=== PATIENT | male | born 1940 | race Caucasian/White ===

== ENCOUNTER 2016-09-23 15:30 | Inpatient (IN) | payer MEDICARE, OTHER ==
[~2016-09-23] VITALS: Ht 165.1 cm; Wt 56.2 kg
--- NOTE | 2016-09-23 15:58 | Emergency Room Report ---
History of Present Illness General Chief Complaint: To Be Triaged Source: Patient, Caregiver, PMD Present Illness HPI [id number] walk-in with friend/caregiver, sent by Dr Marshall for admission for failure to thrive. Patient is alert and oriented, endorses Parkinsons diagnosis since Feb 2016. Patient has no complaints, other than "frequent falls " noting multiple old bruises to upper extremities. Caregiver states patient "hallucinating, seeing things moving", "cant be by himself." Allergies: Coded Allergies: No Known Allergies (Unverified , 09/23/16) Patient History Past Medical History: HTN, dementia Past Surgical History: none Pertinent Family History: none Social History: Denies: alcohol use, drug use, smoking Immunizations: UTD Reviewed Nursing Documentation: PMH: Agreed, PSxH: Agreed Review of Systems All Other Systems: negative except mentioned in HPI Physical Exam Sp02 EP Interpretation: reviewed, normal General Appearance: normal inspection, well appearing, no apparent distress, alert, GCS 15, non-toxic Head: normocephalic, atraumatic Eyes: bilateral eye EOMI, bilateral eye PERRL ENT: normal ENT inspection, hearing grossly normal, normal voice Neck: normal inspection, full range of motion, supple, no bony tend Respiratory: normal inspection, lungs clear, normal breath sounds, no respiratory distress, no retraction, no wheezing Cardiovascular #1: regular rate, rhythm, no edema Gastrointestinal: normal inspection, normal bowel sounds, non tender, soft, no guarding, no hernia Genitourinary: no CVA tenderness Musculoskeletal: normal inspection, back normal, normal range of motion, Mykel' s Sign negative Neurologic: normal inspection, alert, oriented x3, responsive, graduation coach III-XII nml as tested, motor strength/tone normal, speech normal Psychiatric: normal inspection, judgement/insight normal, mood/affect normal Skin: normal inspection, normal color, no rash Lymphatic: normal inspection Medical Decision Making Medicare Attestation I Nilo Lobo MD hereby attest that the medical record entry for date of service, 03/30/16 accurately reflects signatures/notations that I made in my capacity as MD when I treated/diagnosed the above listed Medicare beneficiary. I attest that this information is true, accurate and complete to the best of my knowledge. I understand that any falsification, omission, or concealment of material fact may subject me to administrative, civil, or criminal liability. This patient warrants hospital admission for extreme of age and has a condition that cannot be treated as outpatient. Diagnostic Impression: Primary Impression: Failure to thrive Qualified Codes: R62.7 - Adult failure to thrive Additional Impressions: KEMI (acute kidney injury) Rhabdomyolysis Qualified Codes: M62.82 - Rhabdomyolysis ER Course Failure to thrive/weakness - Labs c/w KEMI, mild rhabdo. IVF NS given in ED for dehydration/pre-renal as likely cause. - CXR and UA negative for acute infection - CT head negative for acute trauma - ECG shows bifascular block. Troponin 0. Endorsed to Dr Bonilla for Dr Marshall at 642pm for med/surg admission EKG Diagnostic Results Rate: normal Rhythm: other - bifascular block, LVH Rhythm Strip Diag. Results EP Interpretation: yes Rate: 82 Chest X-Ray Diagnostic Results EP Interpretation: Yes Findings: no consolidation, no effusion, no pneumothorax, no acute cardiopulmonary disease Number of Views: 1 Status: improved Disposition: ADMITTED INPATIENT Condition: Serious Referrals: NON PHYSICIAN (PCP) NILO LOBO M.D. September 23, 2016 15:58
[2016-09-23 16:10] VITALS: BP 136/70
[2016-09-23 16:33] LABS: BASOPHILS % (AUTO) 1.4 % (0.0-2.0); EOSINOPHILS % (AUTO) 2.7 % (0.0-3.0); MEAN CORPUSCULAR HEMOGLOBIN 32.5 PG (27.0-31.0); MEAN CORPUSCULAR HGB CONC 35.2 G/DL (32.0-36.0); MEAN CORPUSCULAR VOLUME 92 FL (80-99); MEAN PLATELET VOLUME 10.5 FL (6.5-10.1); MONOCYTES % (AUTO) 13.3 % (1.0-10.0); NEUTROPHILS % (AUTO) 63.6 % (45.0-75.0); PLATELET COUNT 129 K/UL (150-450); RED CELL DISTRIBUTION WIDTH 13.5 % (11.6-14.8); WHITE BLOOD COUNT 5.5 K/UL (4.8-10.8)
[2016-09-23 16:52] LABS: TROPONIN I < 0.30 ng/mL (<=0.30)
[2016-09-23 16:55] LABS: ALANINE AMINOTRANSFERASE 5 U/L (3-41); ALBUMIN/GLOBULIN RATIO 1.2 (1.0-2.7); ANION GAP 19 (5-15); ASPARTATE AMINO TRANSFERASE 44 U/L (5-40); CALCIUM 9.1 mg/dL (8.6-10.2); CARBON DIOXIDE 19 mEQ/L (20-30); CHLORIDE 103 mEQ/L (98-107); CREATININE 1.7 mg/dL (0.7-1.2); HEMOLYSIS 4; POTASSIUM 4.2 mEQ/L (3.4-4.9); SODIUM 141 mEQ/L (135-145); TOTAL PROTEIN 6.9 g/dL (6.6-8.7)
[2016-09-23] MEDS ORDERED: SINEMET 25-1001 EAC1 ORAL (17:02)
[2016-09-23] MEDS ORDERED: MINOCYCLINE HC100 MG PO (17:02)
[2016-09-23] MEDS ORDERED: CEPHALEXIN500 M1 ORAL (17:02)
[2016-09-23] MEDS ORDERED: AMANTADINE100 M2 ORAL (17:02)
[2016-09-23 17:05] LABS: CKMB 17.9 ng/mL (< 6.7)
[2016-09-23 17:16] VITALS: BP 179/72
[2016-09-23 18:01] LABS: APPEARANCE,URINE CLEAR; KETONES,URINE 1+ (NEGATIVE); LEUKOCYTE ESTERASE ,URINE 3+ (NEGATIVE); NITRITE,URINE NEGATIVE (NEGATIVE); PH,URINE 5 (4.5-8.0); PROTEIN,URINE 2+ (NEGATIVE); UROBILINOGEN,URINE NORMAL MG/DL (0.0-1.0)
[2016-09-23 18:16] LABS: AMORPHOUS SEDIMENT,UR FEW /LPF; BACTERIA,URINE FEW /HPF
[2016-09-23] MEDS ORDERED: Miralax 17gm pkt ORAL PRN (19:00)
[2016-09-23 19:05] VITALS: BP 172/64
--- NOTE | 2016-09-23 19:08 | History and Physical ---
History of Present Illness General Date patient seen: September 23, 2016 Time patient seen: 19:08 Reason for Hospitalization: Multiple Trauma/Fall, Failure to thrive Present Illness HPI 75yo male with pmh of prostate cancer, HTN, parkinson's disease who presents with generalized weakness and multiple recent falls. Pt is accompanied by friend /caregiver who states that over the last week pt has been increasingly weaker, imbalanced and has had multiple falls. Most recent fall was today while getting out of bed. Pt has multiple bruises from prior falls including bruises on arms/ hands and forehead. Caregiver is worried that pt is not taking his meds appropriately as he is forgetful. Caregiver is pt's IHSS and only able to check in for a few hours a day. Caregiver states patient "hallucinating, seeing things moving", "cant be by himself." Pt also w/ poor PO intake. Recent fount to be retaining urine while at [facility] and contreras placed. Pt also UTI while at [facility] [place] and started on keflex. Denies f/c, n/v, d/c, chest pain , SOB. Pt was seen at PCP office today and then directed to ER given concern for failure to thrive and likely need for placement. In ED, pt noted to have KEMI w/ SCr 1.7. CK elevated to 800s. CT brain neg for acute abnormality. Given IVFs. Allergies: Coded Allergies: No Known Allergies (Unverified , 09/23/16) Medication History Scheduled Amantadine Hcl* (Amantadine*), 100 MG ORAL TWICE A DAY, (Reported) Carbidopa/Levodopa 25-100 Mg* (Sinemet 25-100 Mg Tablet*), 1 TAB ORAL THREE TIMES A DAY, (Reported) Cephalexin* (Cephalexin*), 500 MG ORAL FOUR TIMES A DAY, (Reported) Minocycline Hcl (Minocycline Hcl), 100 MG PO TWICE A DAY, (Reported) Patient History History Provided By: Patient, Friend, PMD Healthcare decision maker N Resuscitation status Advanced Directive on File Past Medical/Surgical History Past Medical/Surgical History: (1) HTN (hypertension) (2) Prostate cancer (3) Parkinsons disease Family History Family History: Patient reports no known family medical history. Social History Social History: (1) Lives alone with help available Review of Systems Constitutional: Reports: malaise, weakness Eye: Reports: no symptoms ENT: Reports: no symptoms Respiratory: Reports: no symptoms Cardiovascular: Reports: no symptoms Gastrointestinal: Reports: no symptoms Genitourinary: Reports: retention Musculoskeletal: Reports: no symptoms Skin: Reports: no symptoms Psychiatric: Reports: no symptoms Neurological: Reports: tremors Endocrine: Reports: no symptoms Hematologic/Lymphatic: Reports: easy bruising Physical Exam Physical Exam Narrative General: alert, cooperative, no distress, appears stated age Head: normocephalic, without obvious abnormality, atraumatic Eyes: conjunctivae/corneas clear. PERRL, EOM's intact Throat: lips, mucosa, and tongue normal. MMM Neck: supple, symmetrical, trachea midline, and no JVD Lungs: clear to auscultation bilaterally Heart: regular rate and rhythm, S1, S2 normal, no murmur, click, rub or gallop Abdomen: soft, non-tender, non-distended, bowel sounds normal; no masses or organomegaly Extremities: extremities normal, atraumatic, no cyanosis or edema Pulses: 2+ and symmetric Skin: skin color, texture, turgor normal; no rashes or lesions Neurologic: grossly normal, no focal deficits, +resting tremors Last 24 Hour Vital Signs Date Time Temp Pulse Resp B/P Pulse Ox O2 Delivery O2 Flow Rate FiO2 09/23/16 19:05 97.8 82 18 172/64 100 Room Air 09/23/16 17:16 87 12 179/72 98 Room Air 09/23/16 16:10 98.4 89 17 136/70 99 Room Air 09/23/16 16:00 98.4 89 17 136/70 99 Room Air Laboratory Tests Test 09/23/16 16:24 09/23/16 16:53 White Blood Count 5.5 K/UL (4.8-10.8) Red Blood Count 4.70 M/UL (4.70-6.10) Hemoglobin 15.3 G/DL (14.2-18.0) Hematocrit 43.4 % (42.0-52.0) Mean Corpuscular Volume 92 FL (80-99) Mean Corpuscular Hemoglobin 32.5 PG (27.0-31.0) H Mean Corpuscular Hemoglobin Concent 35.2 G/DL (32.0-36.0) Red Cell Distribution Width 13.5 % (11.6-14.8) Platelet Count 129 K/UL (150-450) L Mean Platelet Volume 10.5 FL (6.5-10.1) H Neutrophils (%) (Auto) 63.6 % (45.0-75.0) Lymphocytes (%) (Auto) 19.0 % (20.0-45.0) L Monocytes (%) (Auto) 13.3 % (1.0-10.0) H Eosinophils (%) (Auto) 2.7 % (0.0-3.0) Basophils (%) (Auto) 1.4 % (0.0-2.0) Sodium Level 141 mEQ/L (135-145) Potassium Level 4.2 mEQ/L (3.4-4.9) Chloride Level 103 mEQ/L (98-107) Carbon Dioxide Level 19 mEQ/L (20-30) L Anion Gap 19 (5-15) H Blood Urea Nitrogen 44 mg/dL (7-23) H Creatinine 1.7 mg/dL (0.7-1.2) H Estimat Glomerular Filtration Rate mL/min (>60) Glucose Level 94 mg/dL (74-106) Calcium Level 9.1 mg/dL (8.6-10.2) Total Bilirubin 0.5 mg/dL (0.0-1.2) Aspartate Amino Transf (AST/SGOT) 44 U/L (5-40) H Alanine Aminotransferase (ALT/SGPT) 5 U/L (3-41) Alkaline Phosphatase 102 U/L (40-129) Total Creatine Kinase 895 U/L (38-174) H Creatine Kinase MB 17.9 ng/mL (< 6.7) H Creatine Kinase MB Relative Index 2.0 Troponin I < 0.30 ng/mL (<=0.30) Total Protein 6.9 g/dL (6.6-8.7) Albumin 3.8 g/dL (3.5-5.2) Globulin 3.1 g/dL Albumin/Globulin Ratio 1.2 (1.0-2.7) Urine Color Pale yellow Urine Appearance Clear Urine pH 5 (4.5-8.0) Urine Specific [place] 1.025 (1.005-1.035) Urine Protein 2+ (NEGATIVE) H Urine Glucose (UA) Negative (NEGATIVE) Urine Ketones 1+ (NEGATIVE) H Urine Occult Blood 5+ (NEGATIVE) H Urine Nitrite Negative (NEGATIVE) Urine Bilirubin Negative (NEGATIVE) Urine Urobilinogen Normal MG/DL (0.0-1.0) Urine Leukocyte Esterase 3+ (NEGATIVE) H Urine RBC 5-10 /HPF (0 - 0) H Urine WBC 2-4 /HPF (0 - 0) Urine Squamous Epithelial Cells None /LPF (NONE/OCC) Urine Amorphous Sediment Few /LPF (NONE) H Urine Bacteria Few /HPF (NONE) Height (Feet): 5 Height (Inches): 5.00 Weight (Pounds): 124 Medications Current Medications Medications (Trade) Dose Ordered Sig/Alejandro Route PRN Reason Start Time Stop Time Status Last Admin Dose Admin Acetaminophen (Tylenol) 650 mg Q4H PRN ORAL Mild Pain (Pain Scale 1-3) 09/23/16 19:00 10/23/16 18:59 UNV Amantadine HCl (Symmetrel) 100 mg TWICE A DAY ORAL 09/24/16 09:00 10/24/16 08:59 UNV Amlodipine Besylate 5 mg 5 mg DAILY PRN ORAL SBP>160 09/23/16 19:00 10/23/16 18:59 UNV Bisacodyl (Dulcolax) 10 mg HSPRN PRN RECTAL Constipation 09/23/16 19:00 10/23/16 18:59 UNV Carbidopa/Levodopa (Sinemet 25/100) 1 ea THREE TIMES A DAY ORAL 09/24/16 09:00 10/24/16 08:59 UNV Ceftriaxone Sodium/Dextrose (Rocephin/D5W) 55 ml @ 110 mls/hr Q24H IVPB 09/23/16 19:15 09/30/16 19:14 UNV Dextrose (Dextrose 50%) STAT PRN IV Hypoglycemia 09/23/16 19:00 10/23/16 18:59 UNV Diphenhydramine HCl (Benadryl) 25 mg Q6H PRN ORAL Itching/Pruritis 09/23/16 19:00 10/23/16 18:59 UNV Docusate Sodium (Colace) 100 mg EVERY 12 HOURS ORAL 09/23/16 21:00 10/23/16 20:59 UNV Ondansetron HCl (Zofran) 4 mg Q6H PRN IVP Nausea & Vomiting 09/23/16 19:00 10/23/16 18:59 UNV Polyethylene Glycol (Miralax) 17 gm HSPRN PRN ORAL Constipation 09/23/16 19:00 10/23/16 18:59 UNV Sodium Chloride 1,000 ml @ 75 mls/hr [id number] IV 09/23/16 19:15 10/23/16 19:14 UNV Assessment/Plan Problem List: (1) Failure to thrive SNOMED: 27790793 Qualifiers: Qualified Codes: R62.7 - Adult failure to thrive (2) KEMI (acute kidney injury) ICD Codes: N17.9 - Acute kidney failure, unspecified SNOMED: 51383844 (3) UTI (urinary tract infection) ICD Codes: N39.0 - Urinary tract infection, site not specified SNOMED: 32928389 (4) multiple recent falls (5) Parkinsons disease ICD Codes: G20 - Parkinson's disease SNOMED: 17413890 Status: stable Assessment/Plan Admit inpt Neurology consult Cont home sinemet, amantamide Ceftriaxone for UTI while in-house F/u urine cx Check B12, folate, TSH, vitamin D, prealbumin, ESR/CRP, cholesterol Trend CK IVFs given KEMI Trend lytes, Cr Avoid nephrotoxic meds PT/OT/ST Heat Curer consult Swallow eval Likely will need SNF/rehab placement and eventual TANJA/B&C DVT Prophylaxis: SCD Code Status: DNR/DNI Hospital Classification Declaration: Based on this initial evaluation, and depending on the patient's clinical course, I anticipate that this patient will require hospitalization for 2-3 days for FTT, KEMI, and close respiratory/ hemodynamic monitoring. Disposition: Once the patient is stable to leave the hospital, I anticipate the patient will likely be discharged to the following environment: SNF I spent 70 minutes on this patient's case, and 38 minutes were dedicated to counseling and/or care coordination. Discussed with patient/family, nursing staff, SW/CM, PCP, ED physicain regarding clinical status, treatment course, and disposition planning. Time of note may not reflect time of encounter. Advanced Care Planning Note Date of Discussion: 09/23/16 A [id number] discussion with the patient regarding the patient's advanced care planning took place during this hospitalization on the above date. The discussion included the explanation and discussion of advance directives and associated forms/documents, as well as the patient's current code status. We also discussed at length the patient's medical conditions (both acute and chronic), general prognosis, treatment options, and goals of care. The following summarizes the discussion: Advance Care Planning/Goals of Care: - Will attempt to fill out an AD and/or POLST with the patient prior to discharge, if not already completed - Continue current evaluation and management of any acute and chronic medical issues - Will continue to support the patient/family - Will continue to discuss both short- and long-term goals of care DPOA-HC/Surrogate Decision Maker: DPOA is pili Henao - [phone] Code Status: DNR/DNI AD Forms/Documents Completed: Asked to bring in AD form Will complete POLST prior to d/c A total of 31 minutes was spent on this discussion, including counseling, answering questions, and completing, if any, pertinent advanced care planning forms/documents. Chad Gallegos M.D. September 23, 2016 19:08
[2016-09-23 20:00] VITALS: BP 180/90
[2016-09-23] MEDS: Amantadine 100mg cap ORAL SCH (20:58)
[2016-09-23] MEDS: Docusate 100mg cap ORAL SCH (20:58)
[2016-09-23] MEDS: cefTRIAXone 1 GM in D5W 55 ML IVPB SCH (21:01)
[2016-09-24] VITALS: BP 167/86
[2016-09-24 04:21] VITALS: BP 155/75
[2016-09-24 06:57] LABS: BASOPHILS % (AUTO) 0.8 % (0.0-2.0); EOSINOPHILS % (AUTO) 2.6 % (0.0-3.0); MEAN CORPUSCULAR HEMOGLOBIN 30.7 PG (27.0-31.0); MEAN CORPUSCULAR HGB CONC 33.6 G/DL (32.0-36.0); MEAN CORPUSCULAR VOLUME 91 FL (80-99); MEAN PLATELET VOLUME 10.3 FL (6.5-10.1); MONOCYTES % (AUTO) 12.5 % (1.0-10.0); NEUTROPHILS % (AUTO) 64.1 % (45.0-75.0); PLATELET COUNT 127 K/UL (150-450); RED BLOOD COUNT 4.41 M/UL (4.70-6.10); RED CELL DISTRIBUTION WIDTH 13.3 % (11.6-14.8); WHITE BLOOD COUNT 5.9 K/UL (4.8-10.8)
[2016-09-24 07:27] LABS: ALANINE AMINOTRANSFERASE 15 U/L (3-41); ALBUMIN/GLOBULIN RATIO 1.3 (1.0-2.7); ANION GAP 15 (5-15); ASPARTATE AMINO TRANSFERASE 37 U/L (5-40); CALCIUM 8.8 mg/dL (8.6-10.2); CARBON DIOXIDE 24 mEQ/L (20-30); CHLORIDE 101 mEQ/L (98-107); CREATININE 1.5 mg/dL (0.7-1.2); HEMOLYSIS 5; MAGNESIUM 2.1 mg/dL (1.7-2.5); POTASSIUM 4.1 mEQ/L (3.4-4.9); SODIUM 140 mEQ/L (135-145); TOTAL PROTEIN 6.3 g/dL (6.6-8.7)
[2016-09-24 08:00] VITALS: BP 144/71
[2016-09-24] MEDS: Docusate 100mg cap ORAL SCH ×2 (08:08→21:07)
[2016-09-24] MEDS: Amantadine 100mg cap ORAL SCH ×2 (08:08→17:59)
--- NOTE | 2016-09-24 08:33 | Diagnostic Imaging Report ---
Indications: Head trauma, status post fall Technique: Spiral acquisitions obtained through the brain. Angled axial and coronal 5 x 5 mm slices were reconstructed. Total dose length product 1425 mGycm. CTDI vol(s) 70 mGy. Dose reduction achieved using automated exposure control Comparison: None Findings: There is age-related enlargement of ventricles and extra-axial CSF spaces. There is minimal periventricular deep white matter chronic ischemic change. There is an old lacunar infarct in the right external capsule region. There is a parenchymal in the right occipital lobe. No acute hemorrhage or edema. No mass effect or midline shift. The remainder of the silvestre-white differentiation is normal. The calvarium is intact there is minimal posterior ethmoid sinus disease on the left. The orbits are unremarkable. The mastoids are clear. Impression: Chronic and age-related changes, including old right basal ganglia lacunar infarct. 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 Bertrand The CT scanner at [facility] is accredited by the [employer] and the scans are performed using protocols designed to limit radiation exposure to as low as reasonably achievable to attain images of sufficient resolution adequate for diagnostic evaluation.
[2016-09-24 10:51] LABS: CHOLESTEROL 122 mg/dL (< 200); CRP QUANT 0.6 mg/dL (< 0.5)
[2016-09-24] MEDS: Miralax 17gm pkt ORAL SCH (10:57)
[2016-09-24] MEDS: Vitamin B12 1000mcg/ml Inj IM SCH (11:02)
--- NOTE | 2016-09-24 11:39 | Diagnostic Imaging Report ---
Indication: SOB Technique: One view of the chest Comparison: none Findings: There is a 12 mm nodule at the right lung base, somewhat irregular. Lungs and pleural spaces otherwise clear. There is slight tenting of left hemidiaphragm. The heart size is normal. The aorta is tortuous ectatic and calcified. Impression: 12 mm right basilar nodule. Possibly a nipple shadow, but somewhat irregular appearance is concerning. Recommend followup radiograph with nipple markers No acute process otherwise Findings discussed by phone with patient's attending physician at the time of interpretation
[2016-09-24 12:00] VITALS: BP 161/81
--- NOTE | 2016-09-24 12:07 | Neurology Progress Note ---
Objective Physical Exam Last Vital Signs Date Time Temp Pulse Resp B/P Pulse Ox O2 Delivery O2 Flow Rate FiO2 09/24/16 08:00 98.1 79 18 144/71 98 Room Air Laboratory Tests Test 09/23/16 16:24 09/23/16 16:53 09/24/16 05:35 White Blood Count 5.5 K/UL (4.8-10.8) 5.9 K/UL (4.8-10.8) Red Blood Count 4.70 M/UL (4.70-6.10) 4.41 M/UL (4.70-6.10) L Hemoglobin 15.3 G/DL (14.2-18.0) 13.5 G/DL (14.2-18.0) L Hematocrit 43.4 % (42.0-52.0) 40.3 % (42.0-52.0) L Mean Corpuscular Volume 92 FL (80-99) 91 FL (80-99) Mean Corpuscular Hemoglobin 32.5 PG (27.0-31.0) H 30.7 PG (27.0-31.0) Mean Corpuscular Hemoglobin Concent 35.2 G/DL (32.0-36.0) 33.6 G/DL (32.0-36.0) Red Cell Distribution Width 13.5 % (11.6-14.8) 13.3 % (11.6-14.8) Platelet Count 129 K/UL (150-450) L 127 K/UL (150-450) L Mean Platelet Volume 10.5 FL (6.5-10.1) H 10.3 FL (6.5-10.1) H Neutrophils (%) (Auto) 63.6 % (45.0-75.0) 64.1 % (45.0-75.0) Lymphocytes (%) (Auto) 19.0 % (20.0-45.0) L 20.0 % (20.0-45.0) Monocytes (%) (Auto) 13.3 % (1.0-10.0) H 12.5 % (1.0-10.0) H Eosinophils (%) (Auto) 2.7 % (0.0-3.0) 2.6 % (0.0-3.0) Basophils (%) (Auto) 1.4 % (0.0-2.0) 0.8 % (0.0-2.0) Sodium Level 141 mEQ/L (135-145) 140 mEQ/L (135-145) Potassium Level 4.2 mEQ/L (3.4-4.9) 4.1 mEQ/L (3.4-4.9) Chloride Level 103 mEQ/L (98-107) 101 mEQ/L (98-107) Carbon Dioxide Level 19 mEQ/L (20-30) L 24 mEQ/L (20-30) Anion Gap 19 (5-15) H 15 (5-15) Blood Urea Nitrogen 44 mg/dL (7-23) H 32 mg/dL (7-23) H Creatinine 1.7 mg/dL (0.7-1.2) H 1.5 mg/dL (0.7-1.2) H Estimat Glomerular Filtration Rate mL/min (>60) mL/min (>60) Glucose Level 94 mg/dL (74-106) 79 mg/dL (74-106) Calcium Level 9.1 mg/dL (8.6-10.2) 8.8 mg/dL (8.6-10.2) Total Bilirubin 0.5 mg/dL (0.0-1.2) 0.6 mg/dL (0.0-1.2) Aspartate Amino Transf (AST/SGOT) 44 U/L (5-40) H 37 U/L (5-40) Alanine Aminotransferase (ALT/SGPT) 5 U/L (3-41) 15 U/L (3-41) Alkaline Phosphatase 102 U/L (40-129) 95 U/L (40-129) Total Creatine Kinase 895 U/L (38-174) H 548 U/L (38-174) H Creatine Kinase MB 17.9 ng/mL (< 6.7) H Creatine Kinase MB Relative Index 2.0 Troponin I < 0.30 ng/mL (<=0.30) Total Protein 6.9 g/dL (6.6-8.7) 6.3 g/dL (6.6-8.7) L Albumin 3.8 g/dL (3.5-5.2) 3.6 g/dL (3.5-5.2) Globulin 3.1 g/dL 2.7 g/dL Albumin/Globulin Ratio 1.2 (1.0-2.7) 1.3 (1.0-2.7) Urine Color Pale yellow Urine Appearance Clear Urine pH 5 (4.5-8.0) Urine Specific [place] 1.025 (1.005-1.035) Urine Protein 2+ (NEGATIVE) H Urine Glucose (UA) Negative (NEGATIVE) Urine Ketones 1+ (NEGATIVE) H Urine Occult Blood 5+ (NEGATIVE) H Urine Nitrite Negative (NEGATIVE) Urine Bilirubin Negative (NEGATIVE) Urine Urobilinogen Normal MG/DL (0.0-1.0) Urine Leukocyte Esterase 3+ (NEGATIVE) H Urine RBC 5-10 /HPF (0 - 0) H Urine WBC 2-4 /HPF (0 - 0) Urine Squamous Epithelial Cells None /LPF (NONE/OCC) Urine Amorphous Sediment Few /LPF (NONE) H Urine Bacteria Few /HPF (NONE) Erythrocyte Sedimentation Rate 27 MM/HR (0-20) H Phosphorus Level 3.6 mg/dL (2.5-4.8) Magnesium Level 2.1 mg/dL (1.7-2.5) C-Reactive Protein, Quantitative 0.6 mg/dL (< 0.5) H Prealbumin Pending Cholesterol Level 122 mg/dL (< 200) Vitamin B12 Level 297 pg/mL (211-946) Vitamin D 25-Hydroxy Pending 25-Hydroxy Vitamin D2 Pending 25-Hydroxy Vitamin D3 Pending Folate Pending Thyroid Stimulating Hormone (TSH) Pending Impression/Recommendations Problems: (1) recurrent night time falls with amnesia. r/o sz episodes r/o oversedation r/ o syncope (2) Dementia, vascular with delirium (3) Adult failure to thrive syndrome (4) r/o occult malignancy (5) Parkinsons disease (6) Prostate cancer (7) HTN (hypertension) (8) KEMI (acute kidney injury) (9) Rhabdomyolysis Status: stable, unchanged Recommendations # [id number] REJI BRAND Sep 24, 2016 12:07
--- NOTE | 2016-09-24 12:26 | Diagnostic Imaging Report ---
Indication: Chest pain, followup of prior abnormal chest radiograph Technique: One view of the chest with nipple marker Comparison: none Findings: Nipple markers seen projecting over the right basilar opacity described on prior chest radiograph. The left nipple is also visible on the current exam, not clearly evident previously. Bilateral upper lobe bullous changes are more apparent on the current on the prior study. Focal scalloping or tenting of the left hemidiaphragm is again demonstrated. The lungs and pleural space are otherwise clear. Heart size is normal. Aorta is tortuous. Cholecystectomy clips are noted Impression: Previously described right basilar opacity is demonstrated on the current exam to represent a nipple shadow No acute process Bullous COPD changes
[2016-09-24 13:43] LABS: PSA TOTAL 1.4 ng/mL (< 4.5)
[2016-09-24 16:00] VITALS: BP 159/74
--- NOTE | 2016-09-24 17:30 | Consultation ---
DATE OF CONSULTATION: 09/24/2016 NEUROLOGICAL CONSULTATION REQUESTING PHYSICIAN: Dr. Chda Gallegos. HISTORY OF PRESENT ILLNESS: The patient is a 75-year-old gentleman seen in neurological consultation to evaluate a progressive generalized weakness, difficulty ambulation, and frequent nighttime falls. The patient informed me that last several months he has increasing difficulty ambulation, walking like a "drunk". Finally in February of last year, he was seen neurologist, Dr. Sheldon Edwards, diagnosed with Parkinson disease, started on Sinemet and felt some improvement. Last three to four months, he has noticed increasing generalized weakness involving upper, but predominantly lower extremities. While supine, he feels fairly well with no discomfort in his upper and lower extremities, but weakness developed with any attempt to ambulate. The patient informed me that he has he has difficulty sleeping so he takes some sleeping pills, which takes him through the night well. The last few days, he gets up in the middle of the night probably going to the bathroom and following which, he has episodes of fall. The patient has poor recollection of events. He remember only falling, not sure how he got up and what did he do and up to be falling and bruising his arms and hitting his head. He denies any associated symptoms such as involuntary movement, tongue biting, foaming from his mouth or urinary or bowel incontinence. The patient was brought to this hospital by his friend/caregiver. The patient had no other complaints other than being having frequent falls causing multiple bruises including right forehead region. According to caregiver, the patient had episodes of hallucination and was "seeing things moving". Caregiver concluded that the patient should not be stay alone. His initial examination was rather unremarkable. He was diagnosed with failure to thrive. 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 No evidence of acute intracranial abnormalities. Laboratory work included CBC which was unremarkable except low platelets 129,000. Sedimentation rate of 27. Chemistry panel with BUN of 34, creatinine 1.7, anion gap of 19. elevated CPK at 895 and CK-MB 17.9. Urinalysis with leukocyte esterase 3+, ketones 1+, protein 2+, and WBCs Since admission to present, there is not further paroxysmal events noted. PAST MEDICAL HISTORY: The patient indicated that two years ago, he had a "cancer in my rectum". He had a rectal surgery, underwent radiation therapy and chemotherapy. He stated that he has follow up with his surgeon once a year. The patient has a history of progressive memory loss. He admitted himself difficulty recalling of any ongoing events forcing him to write notes on everything that have to be done. He received . The patient has recent onset of urinary retention. Apparently, he was placed on Nam catheter. He has been recently treated for urinary tract infection. The patient also complains of having some constipation in the last couple weeks. He has a history of insomnia, takes unidentified sleeping pills. He has a history of chronic low back pain. MEDICATIONS: Treatment prior to admission included amantadine 100 mg twice a day, Sinemet 25/100 mg t.i.d., he is on cephalexin and minocycline. ALLERGIES: None reported. SOCIAL HISTORY: He is a single man. His closest family is his sister who is a physician, who lives in [place]. The patient lives alone, but has a caregiver. The patient indicated that he is still driving car and takes care of himself (doubt). 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 Denies alcohol or drug abuse. Nonsmoker. FAMILY HISTORY: Noncontributory. REVIEW OF SYSTEMS: A 14-point review of symptoms was obtained, this included as previously generalized weakness, difficulty ambulation, unsteady gait, urinary retention, new onset of constipation, nighttime episodes of fall without good recollection. Memory loss. Denies headache or dizziness. No difficulty swallowing. No chest pain. No palpitations. No respiratory problems. Denies depression or anxiety. PHYSICAL EXAMINATION: GENERAL: The patient is well-developed cachectic appearing man, not in acute distress, lying comfortably in bed. VITAL SIGNS: His vital signs now stable, blood pressure 144/71 and temperature 99.1 degrees. HEENT: Head normocephalic. There is recent bruises on the right forehead region. NECK: Supple. No meningeal signs. EXTREMITIES: Peripheral pulses 1+ and symmetric. There is a few bruise on the right upper extremity. MENTAL STATUS: The patient is alert and oriented to his name, age, place. He is quite forgetful and a poor historian, but remain coherent, able to maintain conversation. No aphasia and no apraxia noted. CRANIAL NERVES II: Pupils, both responding to light and accommodation. Extraocular movement intact. No nystagmus. CRANIAL NERVES V: Normal corneal responses. CRANIAL NERVES VII: No facial asymmetry. CRANIAL NERVES VIII: Slight decrease in hearing. CRANIAL NERVES IX THROUGH XII: Tongue is in midline. Symmetric palate elevation. MOTOR EXAMINATION: Revealed slight bradykinesia and diffusely reduced strength 5-/5 in both upper and lower extremities, more pronounced in a hip. Flexors 4/5. Mild resting tremor of both hands. Deep tendon reflexes 1+ bilaterally with no pathological responses. SENSORY EXAM: Normal to pinprick and light touch. Gait, unsteady and wobbly. IMPRESSION: 1. New onset of progressive failure to thrive with urinary incontinence and constipation, rule out a tumor recurrence, rule out metastatic disease. 2. Parkinson syndrome, responding to treatment. 3. Hypertension. 4. Chronic low back pain. 5. 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 6. History of rectal cancer status post radiation and chemotherapy. 7. Recurrent nighttime episodes of fall with multiple head and arm injuries. Rule out a nighttime seizure disorder, rule out syncope, vasovagal. RECOMMENDATION: 1. EEG. 2. PSA and CEA. 3. Consider repeating CT of the abdomen and pelvis without contrast. 4. Laboratory work to include B12, methylmalonic acid, SWETA, CRP and thyroid function. 5. Continue current treatment, off sleeping pills, add aspirin 81 mg daily. 6. We will follow with you. Thank you for allowing me to see this interesting patient in neurological consultation. Jose Carlos Zhou M.D. DR: FATOUMATA JOB#: [id number] CC: Daron Hendrickson M.D.
[2016-09-24 20:00] VITALS: BP 165/77
[2016-09-24] MEDS: Sinemet 25/100 tab ORAL SCH (21:07)
[2016-09-24] MEDS: cefTRIAXone 1 GM in D5W 55 ML IVPB SCH (21:08)
[2016-09-25] VITALS (9 sets, daily range): BP systolic 126–184; BP diastolic 54–92
[2016-09-25 06:54] LABS: BASOPHILS % (AUTO) 0.8 % (0.0-2.0); EOSINOPHILS % (AUTO) 2.7 % (0.0-3.0); LYMPHOCYTES % (AUTO) 23.5 % (20.0-45.0); MEAN CORPUSCULAR HEMOGLOBIN 30.3 PG (27.0-31.0); MEAN CORPUSCULAR HGB CONC 32.7 G/DL (32.0-36.0); MEAN CORPUSCULAR VOLUME 92 FL (80-99); MEAN PLATELET VOLUME 10.1 FL (6.5-10.1); MONOCYTES % (AUTO) 13.9 % (1.0-10.0); NEUTROPHILS % (AUTO) 59.2 % (45.0-75.0); PLATELET COUNT 131 K/UL (150-450); RED BLOOD COUNT 4.58 M/UL (4.70-6.10); RED CELL DISTRIBUTION WIDTH 13.5 % (11.6-14.8)
[2016-09-25 07:16] LABS: ANION GAP 14 (5-15); CALCIUM 9.1 mg/dL (8.6-10.2); CARBON DIOXIDE 25 mEQ/L (20-30); CHLORIDE 99 mEQ/L (98-107); CREATININE 1.5 mg/dL (0.7-1.2); HEMOLYSIS 4; POTASSIUM 3.8 mEQ/L (3.4-4.9); SODIUM 138 mEQ/L (135-145)
--- NOTE | 2016-09-25 08:46 | General Progress Note ---
Assessment/Plan Problem List: (1) Failure to thrive SNOMED: 94583476 Qualifiers: Qualified Codes: R62.7 - Adult failure to thrive (2) KEMI (acute kidney injury) ICD Codes: N17.9 - Acute kidney failure, unspecified SNOMED: 49373452 (3) UTI (urinary tract infection) ICD Codes: N39.0 - Urinary tract infection, site not specified SNOMED: 76123665 (4) multiple recent falls (5) Parkinsons disease ICD Codes: G20 - Parkinson's disease SNOMED: 67482524 Status: stable Assessment/Plan Neurology consulted, appreciate rec's F/u EEG F/u CT c/a/p Cont home sinemet, amantamide Ceftriaxone for UTI while in-house F/u urine cx Started B12 supplementation Trend CK Cont IVFs given KEMI Trend lytes, Cr Avoid nephrotoxic meds PT/OT/ST Underwriting Service Representative consulted, appreciate rec's Plan for video swallow eval Likely will need SNF/rehab placement and eventual TANJA/B&C--however pt currently declining DVT Prophylaxis: SCD Code Status: DNR/DNI Hospital Classification Declaration: Based on this initial evaluation, and depending on the patient's clinical course, I anticipate that this patient will require hospitalization for 1-2 days for FTT, KEMI, and close respiratory/ hemodynamic monitoring. Disposition: Once the patient is stable to leave the hospital, I anticipate the patient will likely be discharged to the following environment: SNF I spent 40 minutes on this patient's case, and 24 minutes were dedicated to counseling and/or care coordination. Discussed with patient/family, nursing staff, SW/CM, neurology regarding clinical status, treatment course, and disposition planning. Time of note may not reflect time of encounter. Subjective Date patient seen: Sep 24, 2016 Time patient seen: 15:00 ROS Limited/Unobtainable: No Constitutional: Reports: weakness HEENT: Reports: no symptoms Cardiovascular: Reports: no symptoms Respiratory: Reports: no symptoms Gastrointestinal/Abdominal: Reports: no symptoms Genitourinary: Reports: no symptoms Neurologic/Psychiatric: Reports: no symptoms Endocrine: Reports: no symptoms Hematologic/Lymphatic: Reports: no symptoms Allergies: Coded Allergies: No Known Allergies (Unverified , 09/23/16) All Systems: reviewed and negative except above Subjective Pt doing well. Pt very reluctant to go to SNF/rehab. He is adamant abt going home despite understanding the risks involved. Working w/ PT/OT Denies f/c, n/v, d/c, chest pain, SOB Objective Last 24 Hour Vital Signs Date Time Temp Pulse Resp B/P Pulse Ox O2 Delivery O2 Flow Rate FiO2 09/25/16 08:07 189/105 09/25/16 07:34 98.2 86 14 184/88 98 Room Air 09/25/16 04:00 97.7 79 18 150/79 Room Air 09/25/16 00:00 98.4 78 18 155/76 97 Room Air 09/24/16 21:08 165/77 09/24/16 20:00 99.0 81 20 165/77 98 Room Air 09/24/16 16:00 98.1 85 18 159/74 97 Room Air 09/24/16 15:40 180/84 09/24/16 12:00 97.9 88 20 161/81 98 Room Air Intake and Output 09/24/16 09/25/16 19:00 07:00 Intake Total 975 ml 880 ml Output Total 1000 ml 1700 ml Balance -25 ml -820 ml Intake IV Total 975 ml 880 ml Output Urine Total 1000 ml 1700 ml Laboratory Tests 09/25/16 05:30: White Blood Count 6.0, Red Blood Count 4.58L, Hemoglobin 13.9L, Hematocrit 42.4 , Mean Corpuscular Volume 92, Mean Corpuscular Hemoglobin 30.3, Mean Corpuscular Hemoglobin Concent 32.7, Red Cell Distribution Width 13.5, Platelet Count 131L, Mean Platelet Volume 10.1, Neutrophils (%) (Auto) 59.2, Lymphocytes (%) (Auto) 23.5, Monocytes (%) (Auto) 13.9H, Eosinophils (%) (Auto) 2.7, Basophils (%) (Auto) 0.8, Sodium Level 138, Potassium Level 3.8, Chloride Level 99, Carbon Dioxide Level 25, Anion Gap 14, Blood Urea Nitrogen 21, Creatinine 1.5H, Estimat Glomerular Filtration Rate , Glucose Level 83, Calcium Level 9.1, Total Creatine Kinase 426H Height (Feet): 5 Height (Inches): 5.00 Weight (Pounds): 124 Objective General: alert, cooperative, no distress, appears stated age, thin Head: normocephalic, without obvious abnormality, atraumatic Eyes: conjunctivae/corneas clear. PERRL, EOM's intact Throat: lips, mucosa, and tongue normal. MMM Neck: supple, symmetrical, trachea midline, and no JVD Lungs: clear to auscultation bilaterally Heart: regular rate and rhythm, S1, S2 normal, no murmur, click, rub or gallop Abdomen: soft, non-tender, non-distended, bowel sounds normal; no masses or organomegaly Extremities: extremities normal, atraumatic, no cyanosis or edema Pulses: 2+ and symmetric Skin: skin color, texture, turgor normal; multiple bruises and ecchymoses Neurologic: grossly normal, no focal deficits, +mild resting tremor (improved from admission) Chad Gallegos M.D. Sep 25, 2016 08:46
[2016-09-25] MEDS: Sinemet 25/100 tab ORAL SCH ×3 (10:19→17:23)
[2016-09-25] MEDS: Docusate 100mg cap ORAL SCH ×2 (10:20→20:31)
[2016-09-25] MEDS: Miralax 17gm pkt ORAL SCH ×2 (10:20→20:30)
[2016-09-25] MEDS: Amantadine 100mg cap ORAL SCH ×2 (10:20→17:24)
[2016-09-25] MEDS: Vitamin B12 1000mcg/ml Inj IM SCH (10:21)
--- NOTE | 2016-09-25 10:52 | Diagnostic Imaging Report ---
Indication: Chest and abdominal pain Technique: Continuous helical transaxial imaging of the abdomen and pelvis was obtained from the lung bases to the pubic symphysis. No IV contrast was administered. Coronal 2-D reformats were also obtained. Study obtained in a Siemens sensation [address] Total Dose length Product (DLP): [address] Dose Index Volume (CTDIvol): 1120 mGy Comparison: None Findings: Hyperlucency and architectural distortion of pulmonary vascularity noted throughout the lung nunez bilaterally predominating in the upper lobes. This is also associated with generalized hyperinflation. There are are several paraseptal blebs and a few or noted. Findings consistent with emphysema. The largest single bulla is about 5.7 x 3.0 CM noted just posterior to the telly within the right lower lobe. There is a pectus excavatum. There is moderate calcification of the thoracic aorta and generalized, mild enlargement of the aorta. Coronary calcifications are also present. Small hiatal hernia is present. The stomach is nondistended. There is prominence of the wall the stomach but this is lateral labral sign. Cholecystectomy noted. Nonspecific hypodensity demonstrated within the spleen measuring about 1.5 cm. Suggestion of parapelvic cysts as well as some cortical cysts within both kidneys. Adrenal glands are somewhat prominent bilaterally. There is moderate stool within the colon. Appendix is not densely opacified and are seen on this examination. There are no secondary signs of appendicitis. No free fluid or free air or evidence of bowel obstruction. Diverticula noted in the sigmoid colon. No definite diverticulitis identified. There is narrowing of intervertebral discs and accompanying endplate osteophyte formation. Hypertrophied facet joints also demonstrated.. The bones are osteopenic. Impression: COPD/emphysema moderate degree. Atherosclerotic vascular disease. A multiple bilateral renal cysts suspected. Findings may be confirmed by ultrasound or contrast examination. Moderate stool Diverticulosis of the colon. Status post cholecystectomy. A 1.6 cm low-density splenic lesion nonspecific. Breathing motion artifact Nam catheter in good position. Spondylosis and osteopenia. Bilateral adrenal gland prominence without discrete mass. Hiatal hernia The CT scanner at [facility] is accredited by the [employer] and the scans are performed using dose optimization techniques as appropriate to a performed exam including Automatic Exposure control.
[2016-09-25] MEDS: Aspirin Baby 81mg ORAL SCH (17:24)
--- NOTE | 2016-09-25 18:23 | General Progress Note ---
Assessment/Plan Problem List: (1) Failure to thrive SNOMED: [id number] Qualifiers: Qualified Codes: R62.7 - Adult failure to thrive (2) KEMI (acute kidney injury) ICD Codes: N17.9 - Acute kidney failure, unspecified SNOMED: 32946933 (3) UTI (urinary tract infection) ICD Codes: N39.0 - Urinary tract infection, site not specified SNOMED: 53186439 (4) multiple recent falls (5) Parkinsons disease ICD Codes: G20 - Parkinson's disease SNOMED: 94670652 Status: stable Assessment/Plan Neurology consulted, appreciate rec's F/u EEG F/u CT c/a/p--showed e/o COPD/emphysema, multiple b/l renal cysts, diverticulosis Cont home sinemet, amantamide Ceftriaxone for UTI while in-house F/u urine cx Cont B12 supplementation Trend CK Cont IVFs given KEMI Trend lytes, Cr Avoid nephrotoxic meds PT/OT/ST Derrick Man consulted, appreciate rec's F/u video swallow Regular diet, soft easy to chew for now Pt was instructed that he cannot drive Likely will need SNF/rehab placement and eventual LONG TERM/B&C--however pt currently declining Appreciate SW assistance--if pt ends up going home, then will file APS report DVT Prophylaxis: SCD Code Status: DNR/DNI Hospital Classification Declaration: Based on this initial evaluation, and depending on the patient's clinical course, I anticipate that this patient will require hospitalization for 1-2 days for FTT, KEMI, and close respiratory/ hemodynamic monitoring. Disposition: Once the patient is stable to leave the hospital, I anticipate the patient will likely be discharged to the following environment: SNF vs home w/ hh I spent 40 minutes on this patient's case, and 22 minutes were dedicated to counseling and/or care coordination. Discussed with patient/family, nursing staff, SW/CM, neurology regarding clinical status, treatment course, and disposition planning. Time of note may not reflect time of encounter. Subjective Date patient seen: Sep 25, 2016 Time patient seen: 15:00 ROS Limited/Unobtainable: No Constitutional: Reports: weakness HEENT: Reports: no symptoms Cardiovascular: Reports: no symptoms Respiratory: Reports: no symptoms Gastrointestinal/Abdominal: Reports: no symptoms Genitourinary: Reports: no symptoms Neurologic/Psychiatric: Reports: no symptoms Endocrine: Reports: no symptoms Hematologic/Lymphatic: Reports: no symptoms Allergies: Coded Allergies: No Known Allergies (Unverified , 09/23/16) All Systems: reviewed and negative except above Subjective Pt doing well. Pt very reluctant to go to SNF/rehab. He is adamant abt going home despite understanding the risks involved. Working w/ PT/OT Denies f/c, n/v, d/c, chest pain, SOB Objective Last 24 Hour Vital Signs Date Time Temp Pulse Resp B/P Pulse Ox O2 Delivery O2 Flow Rate FiO2 09/25/16 17:32 168/92 09/25/16 16:29 97.7 88 15 168/92 98 Room Air 09/25/16 11:47 97.7 86 15 155/81 98 Room Air 09/25/16 08:07 189/105 09/25/16 07:34 98.2 86 14 184/88 98 Room Air 09/25/16 04:00 97.7 79 18 150/79 Room Air 09/25/16 00:00 98.4 78 18 155/76 97 Room Air 09/24/16 21:08 165/77 09/24/16 20:00 99.0 81 20 165/77 98 Room Air Intake and Output 09/24/16 09/25/16 19:00 07:00 Intake Total 975 ml 880 ml Output Total 1000 ml 1700 ml Balance -25 ml -820 ml IV Total 975 ml 880 ml Output Urine Total 1000 ml 1700 ml Laboratory Tests 09/25/16 05:30: White Blood Count 6.0, Red Blood Count 4.58L, Hemoglobin 13.9L, Hematocrit 42.4 , Mean Corpuscular Volume 92, Mean Corpuscular Hemoglobin 30.3, Mean Corpuscular Hemoglobin Concent 32.7, Red Cell Distribution Width 13.5, Platelet Count 131L, Mean Platelet Volume 10.1, Neutrophils (%) (Auto) 59.2, Lymphocytes (%) (Auto) 23.5, Monocytes (%) (Auto) 13.9H, Eosinophils (%) (Auto) 2.7, Basophils (%) (Auto) 0.8, Sodium Level 138, Potassium Level 3.8, Chloride Level 99, Carbon Dioxide Level 25, Anion Gap 14, Blood Urea Nitrogen 21, Creatinine 1.5H, Estimat Glomerular Filtration Rate , Glucose Level 83, Calcium Level 9.1, Total Creatine Kinase 426H Height (Feet): 5 Height (Inches): 5.00 Weight (Pounds): 124 Objective General: alert, cooperative, no distress, appears stated age, thin Head: normocephalic, without obvious abnormality, atraumatic Eyes: conjunctivae/corneas clear. PERRL, EOM's intact Throat: lips, mucosa, and tongue normal. MMM Neck: supple, symmetrical, trachea midline, and no JVD Lungs: clear to auscultation bilaterally Heart: regular rate and rhythm, S1, S2 normal, no murmur, click, rub or gallop Abdomen: soft, non-tender, non-distended, bowel sounds normal; no masses or organomegaly Extremities: extremities normal, atraumatic, no cyanosis or edema Pulses: 2+ and symmetric Skin: skin color, texture, turgor normal; multiple bruises and ecchymoses Neurologic: grossly normal, no focal deficits, +mild resting tremor (improved from admission) Chad Gallegos M.D. Sep 25, 2016 18:23
[2016-09-25] MEDS: cefTRIAXone 1 GM in D5W 55 ML IVPB SCH (20:31)
[2016-09-26] VITALS (8 sets, daily range): BP systolic 139–173; BP diastolic 72–84
[2016-09-26 07:05] LABS: ANION GAP 14 (5-15); CARBON DIOXIDE 26 mEQ/L (20-30); CHLORIDE 98 mEQ/L (98-107); CREATININE 1.3 mg/dL (0.7-1.2); HEMOLYSIS 3; SODIUM 138 mEQ/L (135-145)
[2016-09-26 07:10] LABS: MAGNESIUM 1.8 mg/dL (1.7-2.5)
[2016-09-26] MEDS: Miralax 17gm pkt ORAL SCH ×2 (08:23→17:14)
[2016-09-26] MEDS: Aspirin Baby 81mg ORAL SCH (08:24)
[2016-09-26] MEDS: Sinemet 25/100 tab ORAL SCH ×3 (08:26→17:13)
[2016-09-26] MEDS: Docusate 100mg cap ORAL SCH ×2 (08:28→20:25)
[2016-09-26] MEDS: Amantadine 100mg cap ORAL SCH ×2 (08:28→17:12)
[2016-09-26] MEDS: Vitamin B12 1000mcg/ml Inj IM SCH (08:30)
--- NOTE | 2016-09-26 10:08 | Diagnostic Imaging Report ---
Indication:Elevated Bun and Creatinine. Technique: Grayscale and duplex Doppler imaging of the kidneys performed. Comparison: None Findings: There are multiple cysts within both kidneys of varying size. Subtle cortical and others parapelvic. Both kidneys appear echogenic in terms of the renal cortex. Findings correspond to recently obtained noncontrast CT performed on September 25, 2016 which showed multiple bilateral renal hypodensities. There is no hydronephrosis demonstrated currently. The right kidney measures 10.3 cm and the left 11.6 cm in length. The largest single cyst is in the left kidney centrally and measures about 5 cm. This appears to be a parapelvic cyst. The urinary bladder is collapsed. There is a Nam catheter present. Impression: Multiple bilateral renal cysts. Mildly increased echogenicity of the renal cortex bilaterally. Query medical renal disease. Nam catheter
[2016-09-26] MEDS ORDERED: NORVASC5 MG ORAL (14:56)
[2016-09-26] MEDS ORDERED: ASPIRIN81 MG ORAL (14:56)
--- NOTE | 2016-09-26 15:01 | Discharge Summary ---
Discharge Summary Hospital Course Date of Admission September 23, 2016 at 16:05 Date of Discharge September 26, 2016 Admitting Diagnosis failure to thrive Reason for Hospitalization: as above HPI Malachi Marion is a 75 year old male who was admitted on September 23, 2016 at 16:05 for Failure To Thrive Consultations Neurology Procedures none Hospital Course 75 y/o man admitted through ED due to recurrent galls at home, failure to thrive and possible metabolic encephalopathy with altered mentations. Seen by Neurology, CT brain normal. CT C/A/P done that was unremarkable. Pt renal function improved with IV fluids, UTI treated with IV abx, urine cx was no growth. After thorough evaluation, pt was dced to SNF after recs by PT Discharge Medications New Medications: Amlodipine Besylate (Norvasc) 5 Mg Tablet 10 MG ORAL DAILY for 30 Days, #30 TAB Aspirin* (Aspirin*) 81 Mg Tab.chew 81 MG ORAL DAILY for 30 Days, #30 TAB Continued Medications: Amantadine Hcl* (Amantadine*) 100 Mg Tablet 100 MG ORAL TWICE A DAY, TAB Carbidopa/Levodopa 25-100 Mg* (Sinemet 25-100 Mg Tablet*) 1 Each Tablet 1 TAB ORAL THREE TIMES A DAY, TAB Cephalexin* (Cephalexin*) 500 Mg Tablet 500 MG ORAL FOUR TIMES A DAY for 10 Days, CAP Minocycline Hcl (Minocycline Hcl) 100 Mg Capsule 100 MG PO TWICE A DAY, CAP Discharge Condition Upon Discharge: stable Discharge Disposition Patient was discharged to [facility] Discharge Diagnoses: (1) COPD (chronic obstructive pulmonary disease) (2) Parkinsons disease (3) HTN (hypertension) (4) UTI (urinary tract infection) (5) KEMI (acute kidney injury) (6) multiple recent falls (7) Adult failure to thrive syndrome (8) Dementia, vascular with delirium (9) recurrent night time falls with amnesia. r/o sz episodes r/o oversedation r/ o syncope (10) Metabolic encephalopathy ATILIO VÁZQUEZ Sep 26, 2016 15:01
[2016-09-26] MEDS ORDERED: Tubing IV Secondary IV ONE (17:12)
[2016-09-26] MEDS ORDERED: 1/2 NS 1000ml IV ONE (17:12)
[2016-09-26] MEDS: cefTRIAXone 1 GM in D5W 55 ML IVPB SCH (20:26)
[2016-09-26] MEDS: Zolpidem 5mg tab ORAL PRN (23:14)
[2016-09-27] VITALS (8 sets, daily range): BP systolic 147–167; BP diastolic 62–90
[2016-09-27] MEDS: Miralax 17gm pkt ORAL SCH ×2 (09:58→18:24)
[2016-09-27] MEDS: Vitamin B12 1000mcg/ml Inj IM SCH (09:58)
[2016-09-27] MEDS: Amantadine 100mg cap ORAL SCH ×2 (09:59→18:24)
[2016-09-27] MEDS: Aspirin Baby 81mg ORAL SCH (09:59)
[2016-09-27] MEDS: Docusate 100mg cap ORAL SCH ×2 (09:59→21:16)
[2016-09-27] MEDS: Sinemet 25/100 tab ORAL SCH ×3 (09:59→18:24)
--- NOTE | 2016-09-27 18:39 | General Progress Note ---
Assessment/Plan Problem List: (1) Dementia, vascular with delirium ICD Codes: F01.51 - Vascular dementia with behavioral disturbance; R41.0 - Disorientation, unspecified SNOMED: 63975749 (2) Adult failure to thrive syndrome ICD Codes: R62.7 - Adult failure to thrive SNOMED: 730166630 (3) multiple recent falls (4) KEMI (acute kidney injury) ICD Codes: N17.9 - Acute kidney failure, unspecified SNOMED: 69011114 (5) UTI (urinary tract infection) ICD Codes: N39.0 - Urinary tract infection, site not specified SNOMED: 24857926 (6) HTN (hypertension) ICD Codes: I10 - Essential (primary) hypertension SNOMED: 43936833 (7) Parkinsons disease ICD Codes: G20 - Parkinson's disease SNOMED: 67702504 (8) Metabolic encephalopathy ICD Codes: G93.41 - Metabolic encephalopathy SNOMED: 70965839 (9) COPD (chronic obstructive pulmonary disease) ICD Codes: J44.9 - Chronic obstructive pulmonary disease, unspecified SNOMED: 56233218 Assessment/Plan Neurology consulted, appreciate rec's F/u EEG F/u CT c/a/p--showed e/o COPD/emphysema, multiple b/l renal cysts, diverticulosis Cont home sinemet, amantamide Ceftriaxone for UTI while in-house F/u urine cx Cont B12 supplementation Trend CK Cont IVFs given KEMI Trend lytes, Cr Avoid nephrotoxic meds PT/OT/ST Metallurgical Specialist consulted, appreciate rec's F/u video swallow Regular diet, soft easy to chew for now Pt was instructed that he cannot drive Psychiatry consult to assess capacity Likely will need SNF/rehab placement and eventual INTERMEDIATE/B&C--however pt currently declining Appreciate SW assistance--if pt ends up going home, then will file APS report Subjective Date patient seen: Sep 27, 2016 Time patient seen: 18:38 ROS Limited/Unobtainable: No Allergies: Coded Allergies: No Known Allergies (Unverified , 09/23/16) Subjective Discharge held yesterday as pt refuses SNF, changed his mind after initially deciding to go to a SNF, pt with unsafe dispo plan Objective Last 24 Hour Vital Signs Date Time Temp Pulse Resp B/P Pulse Ox O2 Delivery O2 Flow Rate FiO2 09/27/16 16:00 97.5 85 20 147/62 97 Room Air 09/27/16 12:00 97.2 96 20 160/76 97 Room Air 09/27/16 10:00 100 166/86 09/27/16 08:00 97.9 100 20 166/86 97 Room Air 09/27/16 04:12 92 158/90 09/27/16 03:55 98.2 89 17 167/87 97 Room Air 09/27/16 00:40 90 150/82 09/26/16 23:55 98.1 84 20 165/81 98 Room Air 09/26/16 20:12 97.7 89 19 140/76 97 Room Air Intake and Output 09/26/16 09/27/16 19:00 07:00 Intake Total 825 ml 880 ml Output Total 800 ml 1100 ml Balance 25 ml -220 ml IV Total 825 ml 880 ml Output Urine Total 800 ml 1100 ml Height (Feet): 5 Height (Inches): 5.00 Weight (Pounds): 124 Objective General: alert, cooperative, no distress, appears stated age Head: normocephalic, without obvious abnormality, atraumatic Eyes: conjunctivae/corneas clear. PERRL, EOM's intact Throat: lips, mucosa, and tongue normal. MMM Neck: supple, symmetrical, trachea midline, and no JVD Lungs: clear to auscultation bilaterally Heart: regular rate and rhythm, S1, S2 normal, no murmur, click, rub or gallop Abdomen: soft, non-tender, non-distended, bowel sounds normal; no masses or organomegaly Extremities: extremities normal, atraumatic, no cyanosis or edema Pulses: 2+ and symmetric Skin: skin color, texture, turgor normal; no rashes or lesions Neurologic: grossly normal, no focal deficits ATILIO VÁZQUEZ Sep 27, 2016 18:39
[2016-09-27] MEDS: cefTRIAXone 1 GM in D5W 55 ML IVPB SCH (21:17)
--- NOTE | 2016-09-27 22:30 | Electroencephalogram ---
DATE OF PROCEDURE: 09/24/2016 REQUESTING PHYSICIAN: Daron Hendrickson M.D. HISTORY: This is a 75-year-old man with dementia, hallucinations, paroxysmal changes in mental status, treated now for Parkinson disease, progressive memory loss, generalized weakness, urinary tract infection and hypertension. EEG was done using 18 electrodes placed scalp to scalp, scalp to ear montages according to 10/20 International System. During the recording, awake or drowsy, but fairly cooperative. Most wakeful portions of recording, background activity consists of low to medium voltage, well regulated 8 to 9 cycles per second, alpha activity with good response to physiological stimulation. Photic stimulation from 3 to 33 hertz was done, result no significant changes. As recording progressed, there was appearance of further attenuation and disorganization of background corresponding to sleep stages. No evidence of paroxysmal or epileptiform activities noted. IMPRESSION: Normal awake stage 1 sleep EEG with photic stimulation. COMMENT: Absence of paroxysmal event on a single recording does not rule out seizure disorder. Jose Carlos Zhou M.D. DR: SABINE JOB#: [id number] CC:
[2016-09-27] MEDS: Zolpidem 5mg tab ORAL PRN (22:50)
[2016-09-28] VITALS: BP_SYST 138; BP_SYST 159; BP_DIAS 62; BP_DIAS 80
[2016-09-28 04:00] VITALS: BP 166/94
[2016-09-28 05:00] VITALS: BP 156/104
--- NOTE | 2016-09-28 07:02 | Cardiology Report ---
APPROVED REPORT EXAM: Two-dimensional and M-mode echocardiogram with Doppler and color Doppler. INDICATION Essential Hypertension M-Mode DIMENSIONS IVSd0.8 (0.7-1.1cm)Left Atrium (MM)4.0 (1.6-4.0cm) LVDd5.3 (3.5-5.6cm)Aortic Root3.1 (2.0-3.7cm) PWd1.5 (0.7-1.1cm)Aortic Cusp Exc.1.2 (1.5-2.0cm) IVSs1.5 cm LVDs3.5 (2.5-4.0cm) PWs1.8 cm Normal left ventricular chamber size, systolic function and wall motion. Left ventricular ejection fraction estimated to be 55-60 %. Mild left ventricular hypertrophy. Anterior Echo-free space, may be due to pericardial fat or effusion. All other cardiac chamber sizes are within normal limits. Aortic valve calcification with decreased cusp excursion c/w mild aortic stenosis. Thickened mitral valve leaflets with normal excursion. Mitral annulus and aortic root calcification. Pulmonic valve not well visualized. Normal tricuspid valve structure. IVC at normal size and collapsing with respiration. A color flow and spectral Doppler study was performed and revealed: Moderate aortic insufficiency. Peak aortic valve gradient of 20 mm Hg and a mean of 10 mmHg. Aortic valve area 1.7 cm2 calculated by continuity equation. Trace mitral regurgitation. Mitral diastolic velocities suggest reduced left ventricular relaxation c/w mild LV diastolic dysfunction (Grade I). Trace tricuspid regurgitation. Tricuspid systolic velocities suggests peak right ventricular systolic pressure of 12 mmHg. Pulmonic regurgitation present.
[2016-09-28 08:11] VITALS: BP 154/88
[2016-09-28] MEDS: Sinemet 25/100 tab ORAL SCH ×3 (09:15→18:32)
[2016-09-28] MEDS: Docusate 100mg cap ORAL SCH ×2 (09:15→20:08)
[2016-09-28] MEDS: Aspirin Baby 81mg ORAL SCH (09:16)
[2016-09-28] MEDS: Miralax 17gm pkt ORAL SCH ×2 (09:16→18:00)
[2016-09-28] MEDS: Amantadine 100mg cap ORAL SCH ×2 (09:16→18:32)
[2016-09-28] MEDS: Vitamin B12 1000mcg/ml Inj IM SCH (09:17)
--- NOTE | 2016-09-28 14:31 | General Progress Note ---
Assessment/Plan Problem List: (1) Dementia, vascular with delirium ICD Codes: F01.51 - Vascular dementia with behavioral disturbance; R41.0 - Disorientation, unspecified SNOMED: 55296775 (2) Adult failure to thrive syndrome ICD Codes: R62.7 - Adult failure to thrive SNOMED: 678968335 (3) multiple recent falls (4) KEMI (acute kidney injury) ICD Codes: N17.9 - Acute kidney failure, unspecified SNOMED: 18844366 (5) UTI (urinary tract infection) ICD Codes: N39.0 - Urinary tract infection, site not specified SNOMED: 39463897 (6) HTN (hypertension) ICD Codes: I10 - Essential (primary) hypertension SNOMED: 32732243 (7) Parkinsons disease ICD Codes: G20 - Parkinson's disease SNOMED: 27096694 (8) Metabolic encephalopathy ICD Codes: G93.41 - Metabolic encephalopathy SNOMED: 95333000 (9) COPD (chronic obstructive pulmonary disease) ICD Codes: J44.9 - Chronic obstructive pulmonary disease, unspecified SNOMED: 27467089 Assessment/Plan Neurology consulted, appreciate rec's F/u EEG F/u CT c/a/p--showed e/o COPD/emphysema, multiple b/l renal cysts, diverticulosis Cont home sinemet, amantamide Ceftriaxone for UTI while in-house F/u urine cx Cont B12 supplementation Trend CK Cont IVFs given KEMI Trend lytes, Cr Avoid nephrotoxic meds PT/OT/ST Cras consulted, appreciate rec's F/u video swallow Regular diet, soft easy to chew for now Pt was instructed that he cannot drive Psychiatry consult to assess capacity Likely will need SNF/rehab placement and eventual HALFWAY/B&C--however pt currently declining Appreciate SW assistance--if pt ends up going home, then will file APS report DC home with HH per patient request Subjective Date patient seen: Sep 28, 2016 Time patient seen: 14:29 ROS Limited/Unobtainable: No Allergies: Coded Allergies: No Known Allergies (Unverified , 09/23/16) Subjective Discharge held yesterday as pt refuses SNF, changed his mind after initially deciding to go to a SNF, pt with unsafe dispo plan, psych consult placed Objective Last 24 Hour Vital Signs Date Time Temp Pulse Resp B/P Pulse Ox O2 Delivery O2 Flow Rate FiO2 09/28/16 09:16 95 154/88 09/28/16 08:11 97.0 95 18 154/88 97 Room Air 09/28/16 05:00 156/104 09/28/16 04:28 166/94 09/28/16 04:00 98.0 92 18 166/94 98 Room Air 09/28/16 00:00 98.0 88 20 159/80 98 Room Air 09/27/16 20:30 158/75 09/27/16 20:00 97.0 90 20 163/79 99 Room Air 09/27/16 16:00 97.5 85 20 147/62 97 Room Air Intake and Output 09/27/16 09/28/16 19:00 07:00 Intake Total 280 ml 805 ml Output Total 600 ml 2000 ml Balance -320 ml -1195 ml Intake Oral 280 ml IV Total 805 ml Output Urine Total 600 ml 2000 ml # Bowel Movements 1 1 Height (Feet): 5 Height (Inches): 5.00 Weight (Pounds): 124 Objective General: alert, cooperative, no distress, appears stated age Head: normocephalic, without obvious abnormality, atraumatic Eyes: conjunctivae/corneas clear. PERRL, EOM's intact Throat: lips, mucosa, and tongue normal. MMM Neck: supple, symmetrical, trachea midline, and no JVD Lungs: clear to auscultation bilaterally Heart: regular rate and rhythm, S1, S2 normal, no murmur, click, rub or gallop Abdomen: soft, non-tender, non-distended, bowel sounds normal; no masses or organomegaly Extremities: extremities normal, atraumatic, no cyanosis or edema Pulses: 2+ and symmetric Skin: skin color, texture, turgor normal; no rashes or lesions Neurologic: grossly normal, no focal deficits ATILIO VÁZQUEZ Sep 28, 2016 14:31
[2016-09-28 16:00] VITALS: BP 151/89
[2016-09-28] MEDS: cefTRIAXone 1 GM in D5W 55 ML IVPB SCH (20:09)
[2016-09-28] MEDS: Zolpidem 5mg tab ORAL PRN (21:22)
--- NOTE | 2016-09-28 21:22 | Consultation ---
History of Present Illness General Date patient seen: Sep 27, 2016 Chief Complaint: Multiple Trauma/Fall Present Illness HPI 75-year-old gentleman seen in neurological consultation to evaluate a progressive generalized weakness, difficulty ambulation, and frequent nighttime falls. The patient stated that last several months he has increasing difficulty ambulation and has unsteady gait. the pt was engage during the evaluation and was able to process, communicate, understand and appreciate the information was given to him in regards to his current situation and dispo. the pt had mild cognitive impairment and didn't endorse any manic/psychotic nor depressive sxs. Allergies: Coded Allergies: No Known Allergies (Unverified , 09/23/16) Medication History Scheduled Amantadine Hcl* (Amantadine*), 100 MG ORAL TWICE A DAY, (Reported) Amlodipine Besylate (Norvasc), 10 MG ORAL DAILY Aspirin* (Aspirin*), 81 MG ORAL DAILY Carbidopa/Levodopa 25-100 Mg* (Sinemet 25-100 Mg Tablet*), 1 TAB ORAL THREE TIMES A DAY, (Reported) Cephalexin* (Cephalexin*), 500 MG ORAL FOUR TIMES A DAY, (Reported) Minocycline Hcl (Minocycline Hcl), 100 MG PO TWICE A DAY, (Reported) Patient History History Provided By: Patient, Friend, Medical Record, PMD Healthcare decision maker N Resuscitation status Advanced Directive on File Past Medical/Surgical History Past Medical/Surgical History: (1) Diverticulosis (2) COPD (chronic obstructive pulmonary disease) (3) Metabolic encephalopathy (4) Parkinsons disease (5) HTN (hypertension) (6) Failure to thrive (7) UTI (urinary tract infection) (8) KEMI (acute kidney injury) (9) multiple recent falls (10) Rhabdomyolysis (11) Adult failure to thrive syndrome (12) Dementia, vascular with delirium (13) recurrent night time falls with amnesia. r/o sz episodes r/o oversedation r /o syncope (14) r/o occult malignancy (15) History of anal cancer Physical Exam General Appearance: no apparent distress, alert, thin Neurologic: alert, oriented x 3, responsive Last 24 Hour Vital Signs Date Time Temp Pulse Resp B/P Pulse Ox O2 Delivery O2 Flow Rate FiO2 09/28/16 16:00 95.7 99 18 151/89 98 Room Air 09/28/16 09:16 95 154/88 09/28/16 08:11 97.0 95 18 154/88 97 Room Air 09/28/16 05:00 156/104 09/28/16 04:28 166/94 09/28/16 04:00 98.0 92 18 166/94 98 Room Air 09/28/16 00:00 98.0 88 20 159/80 98 Room Air Intake and Output 09/27/16 09/28/16 19:00 07:00 Intake Total 280 ml 805 ml Output Total 600 ml 2000 ml Balance -320 ml -1195 ml Intake Oral 280 ml IV Total 805 ml Output Urine Total 600 ml 2000 ml # Bowel Movements 1 1 Height (Feet): 5 Height (Inches): 5.00 Weight (Pounds): 124 Medications Current Medications Medications (Trade) Dose Ordered Sig/Alejandro Route PRN Reason Start Time Stop Time Status Last Admin Dose Admin Acetaminophen (Tylenol) 650 mg Q4H PRN ORAL Mild Pain (Pain Scale 1-3) 09/23/16 19:00 10/23/16 18:59 09/24/16 10:23 Amantadine HCl (Symmetrel) 100 mg TWICE A DAY ORAL 09/23/16 21:00 10/23/16 20:59 09/28/16 18:32 Amlodipine Besylate (Norvasc) 10 mg DAILY ORAL 09/27/16 09:00 10/27/16 08:59 09/28/16 09:16 Amlodipine Besylate 5 mg 5 mg DAILYPRN PRN ORAL SBP>160 09/23/16 19:00 10/23/16 18:59 09/26/16 12:35 Aspirin (ASA) 81 mg DAILY ORAL 09/25/16 14:00 10/25/16 13:59 09/28/16 09:16 Bisacodyl (Dulcolax) 10 mg HSPRN PRN RECTAL Unrelieved constipation 09/23/16 19:00 10/23/16 18:59 Carbidopa/Levodopa (Sinemet 25/100) 1 ea THREE TIMES A DAY ORAL 09/24/16 21:00 10/24/16 20:59 09/28/16 18:32 Ceftriaxone Sodium/Dextrose (Rocephin/D5W) 55 ml @ 110 mls/hr Q24H IVPB 09/23/16 21:00 09/30/16 20:59 09/28/16 20:09 Clonidine HCl (Catapres) 0.1 mg Q6HR PRN ORAL For High Blood Pressure 09/24/16 02:30 10/24/16 02:29 09/28/16 04:28 Cyanocobalamin (Vitamin B12) 1,000 mcg DAILY IM 09/24/16 11:00 10/01/16 10:59 09/28/16 09:17 Dextrose (Dextrose 50%) STAT PRN IV Hypoglycemia 09/23/16 19:00 10/23/16 18:59 Diphenhydramine HCl (Benadryl) 25 mg Q6H PRN ORAL Itching/Pruritis 09/23/16 19:00 10/23/16 18:59 09/25/16 23:30 Docusate Sodium (Colace) 100 mg EVERY 12 HOURS ORAL 09/23/16 21:00 10/23/16 20:59 09/28/16 20:08 Ondansetron HCl (Zofran) 4 mg Q6H PRN IVP Nausea & Vomiting 09/23/16 19:00 10/23/16 18:59 Polyethylene Glycol (Miralax) 17 gm BID ORAL 09/25/16 20:00 10/25/16 19:59 09/28/16 09:16 Sennosides (Senokot) 17.2 mg DAILY ORAL 09/24/16 10:30 10/24/16 10:29 09/28/16 09:16 Sodium Chloride 1,000 ml @ 75 mls/hr [id number] IV 09/23/16 21:00 10/23/16 20:59 09/28/16 09:17 Zolpidem Tartrate (Ambien) 5 mg HSPRN PRN ORAL Insomnia 09/26/16 07:45 10/26/16 07:44 09/27/16 22:50 Assessment/Plan Status: stable Assessment/Plan the pt has capacity to make decisions. the pt understand the need for more care at home. the pt is cooperative and doesn't have thought process disorder. Waleska Pisano M.D. Sep 28, 2016 21:22
[2016-09-28 23:34] VITALS: BP 138/62
--- NOTE | 2016-09-29 01:06 | Emergency Room Report ---
History of Present Illness General Chief Complaint: Multiple Trauma/Fall Source: Patient, Friend, Medical Record, PMD Present Illness HPI This is a 75-year-old male who was admitted to the hospital for further to thrive. He was to be discharged home today. In the hospital, he had urinary retention he had a Nam catheter. Nam was removed and he was put to be discharged after voiding. He was having probably and a new Nam was to be placed. Nursing staff on the floor had difficulty placing a Nam in him. I was called by Dr. Huynh to evaluate the patient for urinary retention and a new Nam catheter. On my arrival to the floor, patient said that he need to urinate. He was only able to urinate about 20 mL. Patient has no complaint other than unable to urinate. Allergies: Coded Allergies: No Known Allergies (Unverified , 09/23/16) Patient History Past Medical History: see triage record, old chart reviewed Past Surgical History: other Pertinent Family History: none Social History: Denies: smoking Immunizations: other Reviewed Nursing Documentation: PMH: Agreed, PSxH: Agreed Nursing Documentation-PMH Past Medical History: No History, Except For Hx Cardiac Problems: Yes Hx Hypertension: Yes Hx Cancer: No Hx Gastrointestinal Problems: No Hx Neurological Problems: Yes Hx Dementia: Yes - and/or hallucinations Hx Parkinson's Disease: Yes - and falls Review of Systems Eye: Denies: blurred vision, eye pain ENT: Denies: ear pain, nose congestion, throat swelling Respiratory: Denies: cough, shortness of breath Cardiovascular: Denies: chest pain, palpitations Gastrointestinal: Denies: abdominal pain, diarrhea, nausea, vomiting Genitourinary: Reports: retention Musculoskeletal: Denies: back pain, joint pain Skin: Denies: rash Neurological: Denies: headache, numbness Endocrine: Denies: increased thirst, increased urine Hematologic/Lymphatic: Denies: easy bruising All Other Systems: negative except mentioned in HPI Physical Exam Vital Signs Date Time Temp Pulse Resp B/P Pulse Ox O2 Delivery O2 Flow Rate FiO2 09/23/16 16:00 98.4 89 17 136/70 99 Room Air vitals normal Sp02 EP Interpretation: reviewed, normal General Appearance: well appearing, no apparent distress, alert Head: normocephalic, atraumatic Eyes: bilateral eye EOMI, bilateral eye PERRL ENT: hearing grossly normal, normal pharynx Neck: full range of motion, supple, no meningismus Respiratory: chest non-tender, lungs clear, normal breath sounds Cardiovascular #1: regular rate, rhythm, no murmur Gastrointestinal: normal bowel sounds, non tender, no mass, no organomegaly, no bruit, non-distended, distended - Distended bladder Genitourinary: other - No testicular tenderness. Penis is normal. Musculoskeletal: back normal, gait/station normal, normal range of motion Neurologic: alert Psychiatric: mood/affect normal Skin: warm/dry Procedures Additional Procedure Procedure Narrative Procedure: Nam insertion. Indication: Urinary retention. Description: Under sterile condition, I place an 18 [place] coud catheter. He had good urine output. He felt better. Patient tolerated procedure without a problem. Medical Decision Making Diagnostic Impression: Primary Impression: Acute urinary retention ER Course Patient with urinary retention. Is probably secondary to enlarged prostate. No evidence of any of obstruction. Will continue with current care on the service of Dr. Huynh. Last Vital Signs Date Time Temp Pulse Resp B/P Pulse Ox O2 Delivery O2 Flow Rate FiO2 09/28/16 23:34 97.9 90 18 138/62 98 Room Air Disposition: ADMITTED INPATIENT Condition: Serious Scripts Amlodipine Besylate (Norvasc) 5 Mg Tablet 10 MG ORAL DAILY for 30 Days, #30 TAB Prov: ATILIO VÁZQUEZ 09/26/16 Aspirin* (ASPIRIN*) 81 Mg Tab.chew 81 MG ORAL DAILY for 30 Days, #30 TAB Prov: ATILIO VÁZQUEZ 09/26/16 Referrals: NON PHYSICIAN (PCP) Patient Instructions: Fall Prevention in the Home, [id number], Parkinson Disease, [id number], Failure to Thrive, Adult, [id number] HALLIE PANG M.D. Sep 29, 2016 01:06
[2016-09-29 04:00] VITALS: BP 164/77
[2016-09-29 05:59] VITALS: BP 153/88
--- NOTE | 2016-09-29 08:33 | Diagnostic Imaging Report ---
Indication: Dysphasia Procedure and findings: Real-time fluoroscopic imaging performed in a lateral projection in conjunction with the speech pathologist evaluation. Variable consistencies of barium given per mouth. Findings: Significant abnormalities of both oral and pharyngeal phases of swallowing are demonstrated. Total fluoroscopic time 173 seconds. Some laryngeal penetration noted. There was no aspiration present. Abnormal video swallow. Please refer to speech pathology evaluation for more information.
[2016-09-29 08:44] VITALS: BP 169/81
[2016-09-29] MEDS: Docusate 100mg cap ORAL SCH ×2 (09:00→09:47)
[2016-09-29] MEDS: Miralax 17gm pkt ORAL SCH ×2 (09:00→09:47)
[2016-09-29] MEDS: Sinemet 25/100 tab ORAL SCH (09:47)
[2016-09-29] MEDS: Amantadine 100mg cap ORAL SCH (09:47)
[2016-09-29] MEDS: Aspirin Baby 81mg ORAL SCH (09:47)
[2016-09-29] MEDS: Vitamin B12 1000mcg/ml Inj IM SCH (09:48)
[2016-09-29 11:37] VITALS: BP 156/71
[2016-09-29 12:18] LABS: A/G RATIO 1.4 (0.7-1.7); ABNORMAL PROTEIN BAND 1 Not Observed g/dL (Not Observed); ALBUMIN 3.4 g/dL (2.9-4.4); ALPHA-1 GLOBULIN 0.2 g/dL (0.0-0.4); ALPHA-2 GLOBULIN 0.7 g/dL (0.4-1.0); BETA GLOBULIN 0.7 g/dL (0.7-1.3); GAMMA GLOBULIN 0.9 g/dL (0.4-1.8); GLOBULIN, TOTAL 2.5 g/dL (2.2-3.9); TOTAL PROTEIN 5.9 g/dL (6.0-8.5); VITAMIN D 25-OH TOTAL 28 ng/mL (.)
--- NOTE | 2016-09-30 00:15 | Progress Note ---
SUBJECTIVE: The patient is calm and cooperative. No behavior issues. Mental status unchanged since previous encounter. He is logical and he is going to cooperate and follow the primary's recommendations. MENTAL STATUS EXAMINATION: Alert and oriented x3. Mood is neutral. Affect is constricted. Congruent mood. Thought process is concrete. Thought content, no suicidal or homicidal ideation. ASSESSMENT: 1. Mild cognitive impairment. 2. Depression. PLAN: 1. We will continue to follow and reassess. 2. The patient has the capacity to make decisions. Waleska Pisano M.D. DR: IRENE JOB#: [id number] CC:
== END 2016-09-29 11:30 | disposition home health service (06) | DRG 682 ==
LOC: EMR 15:54 → 4E 16:05 → EDBEDREQ 16:34 → 4E 16:54
DX: N17.9 Acute kidney failure, unspecified (principal); G93.41 Metabolic encephalopathy; M62.82 Rhabdomyolysis; G20 Parkinson's disease; N39.0 Urinary tract infection, site not specified; J44.9 Chronic obstructive pulmonary disease, unspecified; R62.7 Adult failure to thrive; Z85.46 Personal history of malignant neoplasm of prostate; R41.0 Disorientation, unspecified; I10 Essential (primary) hypertension; S40.029A Contusion of unspecified upper arm, initial encounter; S60.229A Contusion of unspecified hand, initial encounter; S00.83XA Contusion of other part of head, initial encounter; W19.XXXA Unspecified fall, initial encounter; Z91.81 History of falling; Y92.009 Unspecified place in unspecified non-institutional (private) residence as the place of occurrence of the external cause; G47.00 Insomnia, unspecified; R32 Unspecified urinary incontinence; K59.00 Constipation, unspecified; Z86.73 Personal history of transient ischemic attack (TIA), and cerebral infarction without residual deficits; Z85.048 Personal history of other malignant neoplasm of rectum, rectosigmoid junction, and anus; R26.89 Other abnormalities of gait and mobility; Z92.3 Personal history of irradiation; G89.29 Other chronic pain; M54.5 Low back pain; K57.90 Diverticulosis of intestine, part unspecified, without perforation or abscess without bleeding; Z66 Do not resuscitate; F01.50 Vascular dementia, unspecified severity, without behavioral disturbance, psychotic disturbance, mood disturbance, and anxiety
CPT/HCPCS: 36415; 70450; 71010; 71250; 74176; 74230; 76775; 80048; 80053; 81003; 82306; 82378; 82465; 82550; 82553; 82607; 82746; 83735; 84100; 84134; 84153; 84165; 84443; 84484; 85025; 85651; 86140; 87086; 93005; 93306; 95819